=== PATIENT | female | born 1950 | race Asian ===

== ENCOUNTER 2025-11-12 13:05 | Emergency (ER) | payer MEDICARE, OTHER ==
[~2025-11-12] VITALS: Ht 157.5 cm; Wt 50.9 kg
[2025-11-12] MEDS ORDERED: LEVO50 PO (13:15)
[2025-11-12] MEDS ORDERED: BENA-18 PO (13:15)
[2025-11-12] MEDS ORDERED: ESCI-8 PO (13:15)
[2025-11-12] MEDS ORDERED: ALLO-97 PO (13:15)
[2025-11-12] MEDS ORDERED: EMPA10TA3 PO (13:15)
[2025-11-12] MEDS ORDERED: ATOR40TA28 PO (13:15)
[2025-11-12 13:17] VITALS: TEMP 98.2
[2025-11-12 13:31] LABS: GLUCOMETER DEV NAME(LOC) ERT.7; GLUCOSE,POINT OF CARE 114 MG/DL (70-110)
[2025-11-12 14:09] VITALS: BP 169/78; PULSE 78; RESP 16; O2SAT 99
[2025-11-12] MEDS ORDERED: COLC-3 PO (15:09)
== END 2025-11-12 15:30 | disposition home or self-care (01) ==
LOC: EMS 13:10
DX: M10.9 Gout, unspecified (principal); J45.909 Unspecified asthma, uncomplicated; F32.A Depression, unspecified; E78.00 Pure hypercholesterolemia, unspecified; I10 Essential (primary) hypertension; Z79.899 Other long term (current) drug therapy
CPT/HCPCS: 99283; 82962; 73130; 96372; J2919